=== PATIENT | female | born 1970 | race African-American/Black ===

== ENCOUNTER 2021-06-05 06:25 | Emergency (ER) | payer OTHER ==
[2021-06-05 07:01] VITALS: BP 121/81; PULSE 97; TEMP 98.1; BMI 33.8
[2021-06-05] MEDS ORDERED: ACETAMINOPHEN 1000 MG/100 ML VIAL (NON FORMULARY) IVPB ONE (07:48)
[2021-06-05] MEDS ORDERED: ONDANSETRON 4 MG/2 ML VIAL IVPUSH ONE (07:48)
[2021-06-05] MEDS ORDERED: SODIUM CHLORIDE 0.9% 500 ML INFUS.BAG IV ONE (07:48)
[2021-06-05] MEDS ORDERED: FAMOTIDINE 10 MG TABLET PO ONE (07:53)
[2021-06-05] MEDS ORDERED: MAG HYDROX/AL HYDROX/SIMETH 30 ML UNIT-DOSE CUP PO ONE (07:53)
[2021-06-05] MEDS ORDERED: SUCRALFATE 1 GM TABLET (FP) PO ONE (07:53)
[2021-06-05] MEDS ORDERED: FAMOTIDINE 10 MG TABLET ONE (08:06)
[2021-06-05] MEDS ORDERED: MAG HYDROX/AL HYDROX/SIMETH 30 ML UNIT-DOSE CUP ONE (08:07)
[2021-06-05] MEDS ORDERED: SUCRALFATE 1 GM TABLET (FP) ONE (08:07)
[2021-06-05] MEDS ORDERED: ONDANSETRON 4 MG/2 ML VIAL ONE (08:07)
[2021-06-05] MEDS ORDERED: ACETAMINOPHEN INJECTION 100 ML IVPB ONE (08:07)
[2021-06-05 08:43] LABS: CALCIUM 8.9 mg/dL (8.5-10.1)
[2021-06-05 08:44] LABS: ALBUMIN 3.6 g/dl (3.4-5.0); BASO % 0.4 % (0-2.0); BLOOD UREA NITROGEN 15.2 mg/dL (7-18); EOS % 0.1 % (0-4.5); HEMATOCRIT 39.5 % (32.4-45.2); HEMOGLOBIN 13.7 GM/dL (10.7-15.3); LYMPH % 29.1 % (8-40); MCH 28.3 pg (25.7-33.7); MCHC 34.8 g/dl (32.0-36.0); MEAN CELL VOLUME 81.5 fl (80-96); MEAN PLT VOLUME 8.6 fl (7.5-11.1); MONO % 12.8 % (3.8-10.2); NEUT % 57.6 % (42.8-82.8); PLATELET COUNT 310 10^3/uL (134-434); RBC 4.84 M/mm3 (3.60-5.2); RDW 14.8 % (11.6-15.6); WHITE BLOOD COUNT 4.1 K/mm3 (4.0-10.0)
[2021-06-05] MEDS ORDERED: POTASSIUM CHLORIDE TABS 20 MEQ TABLET.ER (FP) PO ONE (08:45)
[2021-06-05 08:47] LABS: CREATININE 1.4 mg/dL (0.55-1.3)
[2021-06-05 08:48] LABS: BILIRUBIN,TOTAL 0.8 mg/dL (0.2-1)
[2021-06-05] MEDS ORDERED: POTASSIUM CHLORIDE TABS 10 MEQ TABLET.ER (FP) ONE (08:48)
[2021-06-05 08:49] LABS: TOT PROT 9.2 g/dl (6.4-8.2)
== END 2021-06-05 10:20 | disposition home or self-care (01) ==
LOC: JER 06:25
PROC: 3E033GC Introduction of Other Therapeutic Substance into Peripheral Vein, Percutaneous Approach (ICD-10-PCS; principal; 2021-06-05)
DX: R11.0 Nausea (principal)
CPT/HCPCS: 36415; 80053; 84484; 85025; 93005; 93010; 99284-25; C9803; J0131; U0003; U0005